=== PATIENT | male | born 1980 ===

== ENCOUNTER 2024-11-04 10:49 | Outpatient (RCR) | payer BC, SELFPAY ==
[2024-11-04 11:39] LABS: INR 1.4; Prothrombin Time 17.7 Seconds (11.1-14.7)
== END 2025-02-02 23:59 | disposition home or self-care (01) ==
LOC: ANHLAB 10:49
DX: I35.1 Nonrheumatic aortic (valve) insufficiency (principal)
CPT/HCPCS: 36415; 85610

== ENCOUNTER 2024-11-11 09:30 | Outpatient (RCR) | payer BC, SELFPAY ==
[2024-11-02 14:03] VITALS: BP 122/76; PULSE 88; RESP 14; O2SAT 97
== END 2024-12-09 16:24 | disposition home or self-care (01) ==
LOC: ANHCPREHAB 09:30
DX: Z95.2 Presence of prosthetic heart valve (principal)
CPT/HCPCS: 93798